=== PATIENT | female | born 1975 | race Caucasian/White ===

== ENCOUNTER → 2016-12-10 | Outpatient (REF) ==
[~2016-12-10] MED LIST: COLACE 100100 MG/CAP PO; IMITREX25 MG PO; MOTRIN 600600 MG/TAB PO; NO HOME MEDICATIONS; PERCOCET 325 MG1 TA2 PO; PRENATAL1 TA1 PO; SLOW FE45 MG PO; SYNTHROID 0.0.025 MG PO
== END ==
LOC: WSOH 08:55 → WSPT 12-11 08:30
DX: Z02.1 Encounter for pre-employment examination (principal)

== ENCOUNTER → 2017-06-25 | Outpatient (REF) | LOC: WSOH 16:15 | DX: Z02.89 Encounter for other administrative examinations (principal) ==

== ENCOUNTER 2017-12-26 14:53 | Outpatient (RCR) | payer OTHER | END 2018-02-14 10:32 | disposition home or self-care (01) | LOC: WSOH 14:53 | DX: S00.93XA Contusion of unspecified part of head, initial encounter (principal); S16.1XXA Strain of muscle, fascia and tendon at neck level, initial encounter; S50.11XA Contusion of right forearm, initial encounter; S70.01XA Contusion of right hip, initial encounter; Y04.2XXA Assault by strike against or bumped into by another person, initial encounter; Y92.239 Unspecified place in hospital as the place of occurrence of the external cause; Y99.0 Civilian activity done for income or pay; Z88.2 Allergy status to sulfonamides ==

== ENCOUNTER 2021-01-24 08:06 | Outpatient (CLI) | payer OTHER ==
[~2021-01-24] VITALS: Ht 165.2 cm; Wt 66.0 kg
[2021-01-24 08:34] LABS: HEMOGLOBIN 11.6 g/dl (12.5-16.0); MEAN CELL VOLUME 93 fl (80.0-100.0); MEAN CORPUSCULAR HEMOGLOBIN 30 pg (27.0-31.0); MEAN CORPUSCULAR HGB CONC 32 g/dl (33.0-37.0); MEAN PLATELET VOLUME 10.1 fl (7.4-10.4); PLATELET COUNT 257 K/mm3 (130-400); REDCELL DISTRIBUTION WIDTH-CV 13.6 % (11.5-14.5)
[2021-01-24 08:35] LABS: HEMATOCRIT 36.2 % (37.0-47.0)
[2021-01-24] MEDS ORDERED: 00186-0372-20 IH (08:38)
[2021-01-24] MEDS ORDERED: SYNTHROID0.05 MG/TA (08:39)
[2021-01-24] MEDS ORDERED: 5-HTP100 MG PO (08:40)
[2021-01-24] MEDS ORDERED: VITAMIN C500 MG PO (08:40)
[2021-01-24] MEDS ORDERED: [UNRECOGNIZED DRUG - OTHER] (08:41)
[2021-01-24] MEDS ORDERED: MULTI-VITAMIN W1 TA1 PO (08:43)
[2021-01-24] MEDS ORDERED: CARDIOVID PLUS1 SGL (08:43)
[2021-01-24 08:46] LABS: PROTHROMBIN TIME 11.4 SECONDS (9.7-12.8)
[2021-01-24 08:48] LABS: CALCIUM 8.9 mg/dL (8.4-10.2); CREATININE, serum 0.79 (0.52-1.25); POTASSIUM 3.7 mmol/L (3.4-5.0)
[2021-01-24 09:15] VITALS: BP 92/61; PULSE 55; TEMP 97.8
[2021-01-24 10:05] VITALS: BP 108/71; PULSE 64
--- NOTE | 2021-01-24 10:05 | NUR ---
report from Emelia FUNG, pt is awake and alert sits up in bed, Dr Burger in earlier to talk with pt, no c/o drinks water
[2021-01-24 10:20] VITALS: BP 103/72; PULSE 61
[2021-01-24 10:35] VITALS: BP 104/76; PULSE 66
--- NOTE | 2021-01-24 10:35 | NUR ---
reviewed discharge inst. wt pt on moderate sedation, no new med changes, and followup made
[2021-01-24 10:50] VITALS: BP 98/71; PULSE 61
--- NOTE | 2021-01-24 10:50 | NUR ---
iv d'cd intact, pt up in room and dressed, discharged via w/c to car with at 1110
== END 2021-01-24 11:00 | disposition home or self-care (01) ==
LOC: COL.RAD 08:06
PROVIDERS: Internal Medicine Cardiovascular Disease
DX: Q21.1 Atrial septal defect (principal)
CPT/HCPCS: J2704